=== PATIENT | female | born 1980 | race Caucasian/White ===

== ENCOUNTER 2018-12-17 07:00 | Outpatient (CLI) | payer MEDICAID, SELFPAY ==
[2018-12-17 13:16] LABS: HCT 41.4 % (36.0-46.0); HGB 13.8 g/dL (12.0-15.5); Mean Corp. HGB Concentration 33.3 g/dL (32.0-36.0); Mean Corpuscular Hemoglobin 30.5 pg (27.0-33.0); Mean Corpuscular Volume 91.4 fL (80-95); Mean Platelet Volume 11.7 fL (8.0-11.0); Platelet Count 220 x1000/uL (130-400); RBC 4.53 m/cumm (4.00-5.20); RBC Distribution Width 11.8 % (11.7-14.6); White Blood Cell Count 6.26 k/cumm (4.4-10.8)
[2018-12-17 13:43] LABS: Vitamin B12 297 pg/mL (193-986)
== END 2018-12-17 07:20 ==
PROVIDERS: PCP Family Medicine; Visit Provider Nurse Practitioner
DX: R53.83 Other fatigue (principal); Z13.1 Encounter for screening for diabetes mellitus
CPT/HCPCS: 36415; 85027; 82607; 83036

== ENCOUNTER 2019-01-05 00:29 | Outpatient (CLI) | payer MEDICAID, SELFPAY ==
--- NOTE | 2019-01-05 13:26 | DI.MAMMO_ITS ---
EXAM: MAMMO SCREENING CLINICAL HISTORY: screening Z12.39, baseline TECHNIQUE: Mammograms were interpreted according to the usual protocol including computer analysis w ith CAD system, tomosynthesis and C-view imaging. COMPARISON: No exams were available for comparison FINDINGS: The breast tissue is radiodense which lowers the sensitivity of the study. There is no dominant mass. There are no suspicious calcifications. A rounded density projected over the subareolar portion of the left breast, most likely represents a cyst, however further evaluation with a mediolateral compre ssion spot film and ultrasound is recommended. IMPRESSION: This is a category 0 examination with further assessment of the left breast with a mediolateral comp ression spot film and ultrasound recommended. Breast density, Category C BI-RADS Cat 0 - Assessment Incomplete: Need additional imaging evaluation. Breast Density - Category C - Heterogeneously dense.
== END 2019-01-05 00:49 ==
PROVIDERS: PCP Family Medicine; Visit Provider Nurse Practitioner
DX: Z12.31 Encounter for screening mammogram for malignant neoplasm of breast (principal); R92.8 Other abnormal and inconclusive findings on diagnostic imaging of breast
CPT/HCPCS: 77063; 77067

== ENCOUNTER 2019-01-11 01:51 | Outpatient (CLI) | payer MEDICAID, SELFPAY ==
--- NOTE | 2019-01-11 09:31 | DI.US_ITS ---
EXAM: Additional views of the left breast and a left breast ultrasound CLINICAL HISTORY: ROUNDED DENSITY PROJECTED OVER SUBAREOLAR PORTION LT BREAST MOST LIKELY TECHNIQUE: Mammograms were interpreted according to the usual protocol including computer analysis w [employer] CAD system, tomosynthesis and C-view imaging. Left breast ultrasound was also performed. COMPARISON: Available for comparison FINDINGS: The partially obscured but well-circumscribed nodule at the 3 o'clock position of the left is again v isualized on the additional views. A left breast ultrasound was performed. There is a 2.4 by 1.1 x 2.6 cm simple cyst at the 3 o'clock position of the left breast 3 cm from the nipple. This corresponds to the mammographic finding. No suspicious cystic or solid masses are seen sonographically. IMPRESSION: 1. 2.4 cm simple cyst at the 3 o'clock position of the left breast. This corresponds to the mammogra phic abnormality. 2. No suspicious masses or microcalcifications in the left breast. Yearly mammography is recommended . 3. BI-RADS Cat 2 - Benign Findings 4. Breast Density - Category C - Heterogeneously dense 5. The findings were discussed with the patient on the date of the examination.
--- NOTE | 2019-01-11 10:06 | DI.MAMMO_ITS ---
Additional views of the left breast and a left breast ultrasound CLINICAL HISTORY: ROUNDED DENSITY PROJECTED OVER SUBAREOLAR PORTION LT BREAST MOST LIKELY TECHNIQUE: Mammograms were interpreted according to the usual protocol including computer analysis w [employer] CAD system, tomosynthesis and C-view imaging. Left breast ultrasound was also performed. COMPARISON: Available for comparison FINDINGS: The partially obscured but well-circumscribed nodule at the 3 o'clock position of the left is again v isualized on the additional views. A left breast ultrasound was performed. There is a 2.4 by 1.1 x 2.6 cm simple cyst at the 3 o'clock p osition of the left breast 3 cm from the nipple. This corresponds to the mammographic finding. No renu picious cystic or solid masses are seen sonographically. IMPRESSION: 1. 2.4 cm simple cyst at the 3 o'clock position of the left breast. This corresponds to the mammograp hic abnormality. 2. No suspicious masses or microcalcifications in the left breast. Yearly mammography is recommended. 3. BI-RADS Cat 2 - Benign Findings 4. Breast Density - Category C - Heterogeneously dense 5. The findings were discussed with the patient on the date of the examination. BI-RADS Cat 2 - Benign Findings. Breast Density - Category C - Heterogeneously dense.
== END 2019-01-11 02:11 ==
PROVIDERS: PCP Family Medicine; Visit Provider Nurse Practitioner
DX: Z12.31 Encounter for screening mammogram for malignant neoplasm of breast (principal); R92.8 Other abnormal and inconclusive findings on diagnostic imaging of breast; N60.02 Solitary cyst of left breast
CPT/HCPCS: 76642; 77063; 77067

== ENCOUNTER 2020-01-24 14:49 | Outpatient (REF) | payer MEDICAID, SELFPAY ==
--- NOTE | 2020-01-24 13:30 | PAPFT_PTH ---
PATIENT: Tara Lugo LOC: [place] U#:[id number] AGE/SX: 39/F ROOM: RE01/24/[address]: MOON Hardin : 1980 BED: DIS: 01/24/2020 SPEC #: [id number] RECD: 01/24/20 17:59 STATUS: KIM REQ #: [id number] MILES: 01/24/20 13:[address]: Anali Johnson DEPT: [facility] Cytology RECD BY: Anu Pack ENTERED: 01/24/20 18:00 SP TYPE: PAPFT OTHR DR: Kavitha Robertson, PhD INTERVENTIONAL RADIOLOGY RN Tissues: 1 - CX/ENDOCX FOR PAP SMEARS Procedures: PAP THIN PREP/UVM Screening HPV DNA PROBE Comments: [id number] ([facility]#)
== END 2020-01-24 15:09 ==
LOC: LBN 14:49
PROVIDERS: PCP Nurse Practitioner; Visit Provider Nurse Practitioner Family
DX: Z12.4 Encounter for screening for malignant neoplasm of cervix (principal); Z11.51 Encounter for screening for human papillomavirus (HPV)
CPT/HCPCS: 88142; 87624

== ENCOUNTER 2020-01-26 00:53 | Outpatient (CLI) | payer MEDICAID, SELFPAY ==
--- NOTE | 2020-01-26 08:15 | DI.MAMMO_ITS ---
EXAM: MG MAMMO SCREENING CLINICAL HISTORY: SCREENING, Z12.39 TECHNIQUE: Bilateral full field digital CC and MLO mammographic images were obtained with 3D tomosyn thesis and utilizing computer aided detection (CAD). COMPARISON: Available for comparison. FINDINGS: Masses/Architectural Distortion: Several stable well-circumscribed nodules are seen in the breasts bi laterally. The largest is in the left breast and was previously shown to be a cyst. No suspicious m asses or areas of architectural distortion are seen. Microcalcifications: No suspicious pleomorphic-type are seen. Skin Thickening/Nipple Retraction: None. IMPRESSION: 1. No significant interval change with no specific features of malignancy noted. 2. Unless there is more urgent need, screening mammography is recommended, as per [place] [employer] guidelines. BI-RADS Category 2 - Benign Findings Breast Density - Category C - Heterogeneously dense The mammogram demonstrates the patient's breast tissue is dense. Dense breast tissue is very common a nd is not abnormal but dense breast tissue can make it harder to find cancer on a mammogram. Also, de nse breast tissue may increase their breast cancer risk. This information about the result of the [facility] mogram report was provided to the patient to raise their awareness. Use this report when you speak wi th the patient about their risks for breast cancer, which includes their family history. At that time , you may recommend for more screening tests (Ultrasound or MRI) as they might be useful based on the ir risk. A negative radiographic report should not delay biopsy if a dominant or clinically suspicious mass is present. Up to ten percent of cancers are not identified on mammography. A negative report may reinforce clinical impression. Adenosis and dense breasts may obscure an underlying neoplasm. False positive reports average 6 to 10%. Patient will receive a letter notifying them of these results.
== END 2020-01-26 01:13 ==
PROVIDERS: PCP Nurse Practitioner; Visit Provider Nurse Practitioner
DX: N63.20 Unspecified lump in the left breast, unspecified quadrant (principal); N63.21 Unspecified lump in the left breast, upper outer quadrant; Z12.31 Encounter for screening mammogram for malignant neoplasm of breast
CPT/HCPCS: 77063; 77067

== ENCOUNTER 2021-03-29 01:41 | Outpatient (CLI) | payer MEDICAID, SELFPAY ==
--- NOTE | 2021-03-29 07:15 | DI.MAMMO_ITS ---
Exam(s) MAMMO SCREENING EXAM: MAMMO SCREENING CLINICAL HISTORY: screening,Z12.39. TECHNIQUE: Bilateral full field digital CC and MLO mammographic images were obtained with 3D tomosyn thesis and utilizing computer aided detection (CAD). COMPARISON: Prior mammograms dating back to 2018, the most recent being January 2020. Prior ultrasound 01/11/2019 was also reviewed FINDINGS: Fibroglandular tissue pattern is again noted be moderately dense. There are no CAD designations in either breast. There are no new spiculated masses nor malignant appearing microcalcification groups. Previously present large nodule at 3 o'clock position left breast which were shown to be a cyst on pr ior ultrasound examination is no longer seen. No new significant radiograph findings in left breast. In the right breast a small conglomeration nodules lateral of center located 0.5 cm lateral to the ni pple, unchanged from January 2020 but slightly more prominent than in December 2018. This may repres ent a conglomeration of microcysts but recommend follow-up ultrasound. There are no malignant-appear ing microcalcification groups in this region nor elsewhere in either breast There is no significant architectural distortion nor skin thickening-retraction. IMPRESSION: 1. Previously present large cyst in the left breast is no longer seen. No new left breast findings. 2. Nodular density laterally in the right breast which is probably a conglomeration microcysts. Ultr asound is recommended. BI-RADS Category 0 - Assessment Incomplete: Need additional imaging evaluation Breast Density - Category C - Heterogeneously dense Breast density Category C or D implies that the patient has dense breast tissue. Dense breast tissue can make it harder to find cancer on a mammogram. Dense breast tissue is also associated with an incr eased risk of breast cancer. This information about the result of the mammogram report was provided to the patient to raise their awareness. Use this report when you speak with the patient about their risks for breast cancer, which includes their family history. At that time, you may recommend additional screening tests (Ultrasoun d or MRI) as these tests may add significant information. A negative radiographic report should not delay biopsy if a dominant or clinically suspicious mass is present. Up to ten percent of cancers are not identified on mammography. A negative report may reinforce clinical impression. Adenosis and dense breasts may obscure an underlying neoplasm. False positive reports average 6 to 10%. Patient will receive a letter notifying them of these results.
== END 2021-03-29 02:01 ==
PROVIDERS: PCP Nurse Practitioner; Visit Provider Nurse Practitioner
DX: Z12.31 Encounter for screening mammogram for malignant neoplasm of breast (principal); R92.8 Other abnormal and inconclusive findings on diagnostic imaging of breast
CPT/HCPCS: 77063; 77067

== ENCOUNTER 2021-04-03 01:01 | Outpatient (CLI) | payer MEDICAID, SELFPAY ==
--- NOTE | 2021-04-03 | DI.US_ITS ---
Exam(s) US BREAST RT COMPLETE EXAM: US BREAST RT COMPLETE CLINICAL HISTORY: F/U ABNL MAMMO, NODULAR DENSITY LATERALLY RT BREAST, ? MICROCYSTS TECHNIQUE: Ultrasound performed using standard protocol. COMPARISON: US US BREAST LT LIMITED from 01/11/2019 FINDINGS: Right breast ultrasound was obtained to evaluate a group of well-circumscribed nodules in the lateral portion of the right breast seen on CC view of recent mammogram. I would note that these nodules feliciano d been present on prior mammograms including January 2020 and were mammographically unchanged from t he prior studies. Breast ultrasound shows a group of longitudinally oriented cysts cysts with low-level internal echoes and no evidence of internal vascularity, the largest measuring roughly 1 cm in diameter, in the 7-8 o'clock position in the breast corresponding to the area of mammographic abnormality. The apparent c ysts show posterior acoustic enhancement. No solid mass is identified in this area. Scanning of the remainder of the breast shows small cysts in 12 o'clock and 6 o'clock position, these both measure about 7 millimeters in greatest diameter. No solid mass identified. IMPRESSION: Mammographic finding appears to correspond to longitudinally oriented group of cysts of the lower out er quadrant of the right breast as described above. No worrisome findings on ultrasound examination. I would suggest that a follow-up mammogram and ultrasound be obtained in 12 months. BI-RADS Cat 2 - Benign Findings DATA REPOSITORY:
== END 2021-04-03 01:21 ==
PROVIDERS: PCP Nurse Practitioner; Visit Provider Nurse Practitioner
DX: R92.8 Other abnormal and inconclusive findings on diagnostic imaging of breast (principal)
CPT/HCPCS: 76642

== ENCOUNTER 2022-07-21 00:54 | Outpatient (CLI) | payer MEDICAID, SELFPAY ==
--- NOTE | 2022-07-21 08:45 | DI.MAMMO_ITS ---
Exam(s) MAMMO SCREENING EXAM: MAMMO SCREENING CLINICAL HISTORY: screening,z12.39 TECHNIQUE: Mammograms were interpreted according to the usual protocol including computer analysis w [employer] CAD system, tomosynthesis and C-view imaging. COMPARISON: 2018 through 2021 FINDINGS: The breasts are composed of heterogeneously dense fibroglandular densities, Breast Density category C . No suspicious microcalcifications are seen. New 10mm nodule posterolateral left breast. Spot compression views and ultrasound recommended. Stable nodules lateral right breast. No skin thickening or abnormal axillary lymph nodes are seen. There has been no significant change from prior exams. IMPRESSION: BI-RADS Category 0 - Assessment Incomplete: Need additional imaging evaluation Yearly screening mammography is recommended. Breast Density Category C, heterogeneously Dense. The mammogram demonstrates the patient's breast tissue is dense. Dense breast tissue is very common a nd is not abnormal but dense breast tissue can make it harder to find cancer on a mammogram. Also, de nse breast tissue may increase breast cancer risk. This information about the result of the mammogram report was provided to the patient to raise their awareness. Use this report when you speak with the patient about their risks for breast cancer, which includes their family history. At that time, you may recommend additional screening tests (Ultrasound or MRI) as they might be useful based on their r isk. A negative radiographic report should not delay biopsy if a dominant or clinically suspicious mass is present. Up to ten percent of cancers are not identified on mammography. A negative report may reinforce clinical impression. Adenosis and dense breasts may obscure an underlying neoplasm. False positive reports average 6 to 10%.
== END 2022-07-21 01:14 ==
LOC: DI 00:55
PROVIDERS: PCP Family Medicine; Visit Provider Nurse Practitioner Family
DX: Z12.31 Encounter for screening mammogram for malignant neoplasm of breast (principal)
CPT/HCPCS: 77063; 77067

== ENCOUNTER 2022-07-29 01:00 | Outpatient (CLI) | payer MEDICAID, SELFPAY ==
--- NOTE | 2022-07-29 | DI.MAMMO_ITS ---
Exam(s) MG MAMMO SCREEN CALL BACK UNI US BREAST LT LIMITED EXAM: MG MAMMO SCREEN CALL BACK UNI and U/S breast LT limited CLINICAL HISTORY: NEW NODULE LEFT BREAST R92.8 ABNL MAMMO. TECHNIQUE: Craniocaudal and mediolateral oblique Full Field Digital Mammography views of the left br east with Computer Aided Diagnosis followed by Tomosynthesis and left breast ultrasound. COMPARISON: Comparison is made with prior examinations. FINDINGS: Mammography/Tomosynthesis: Masses/Architectural Distortion: There is again seen an ovoid density in the outer left breast best a ppreciated on the craniocaudad view. No areas of architectural distortion are seen. Microcalcifictions: No suspicious pleomorphic-type are seen. Skin Thickening/Nipple Retraction: None. Limited left breast US: Echotexture: Normal appearance of the glandular tissue. Shadowing: No suspicious foci. Cyst: At the 1 o'clock position 5 cm from the nipple, there is a 0.8 cm simple cyst. This would appe ar to correspond to the mammographic abnormality. At the 2 o'clock position of the left breast 1 cm from the nipple, there is a dilated duct present. At the 3 o'clock position 1 cm from the nipple, th ere is a well-circumscribed complex likely hemorrhagic cyst measuring 1 x 0.8 x 1 cm. Solid lesions: None seen. Ductal dilation: None. IMPRESSION: 1. No definite evidence of malignancy is noted. 2. A six-month follow-up left mammogram is requested for re-evaluation. 3. The findings were discussed with the patient on the date of the examination. BI-RADS Category 3 - 6 month - Probably Benign Finding: Recommend follow-up imaging in 6 months Breast Density - Category C - Heterogeneously dense Breast density Category C or D implies that the patient has dense breast tissue. Dense breast tissue can make it harder to find cancer on a mammogram. Dense breast tissue is also associated with an incr eased risk of breast cancer. This information about the result of the mammogram report was provided to the patient to raise their awareness. Use this report when you speak with the patient about their risks for breast cancer, which includes their family history. At that time, you may recommend additional screening tests (Ultrasoun d or MRI) as these tests may add significant information. A negative radiographic report should not delay biopsy if a dominant or clinically suspicious mass is present. Up to ten percent of cancers are not identified on mammography. A negative report may reinforce clinical impression. Adenosis and dense breasts may obscure an underlying neoplasm. False positive reports average 6 to 10%. Patient will receive a letter notifying them of these results.
== END 2022-07-29 01:20 ==
LOC: DI 01:00
PROVIDERS: PCP Family Medicine; Visit Provider Nurse Practitioner Family
DX: R92.8 Other abnormal and inconclusive findings on diagnostic imaging of breast (principal); Z12.31 Encounter for screening mammogram for malignant neoplasm of breast
CPT/HCPCS: 76642; 77063; 77067

== ENCOUNTER 2022-10-31 16:03 | Emergency (ER) | payer MEDICAID, SELFPAY ==
--- NOTE | 2022-10-31 16:10 | W.ED.GENAD ---
Discharge Plan Disposition Patient Disposition: Home Discharge Details Clinical Impression: Laceration of left hand, Immunization, tetanus-diphtheria Primary Care Provider: Carlos Garcia ED Provider: Kevin Ahn Home Meds and New Rx's Prescriptions: No Action No Known Home Meds Discharge Instructions Instructions: Laceration (ED) Additional Instructions: You were seen in the emergency department for your laceration. Your x-ray showed no sign of any foreign bodies. Your tetanus was updated. Please return to the emergency department if you develop streaking signs of infection any fevers or chills or if you have any other concerns. You had 3 sutures that were placed. These need to come out in 7 to 10 days. Please return to the emergency department or follow-up with your primary care provider. Your x-ray showed no sign of any foreign bodies. For your pain please take medications as follows: 1. Take acetaminophen (Tylenol), 1,000 mg (two 500 mg tabs) every 6 hours 2. Take ibuprofen (Advil), 400 mg every 6 hours. Discharge Data Discharge Date/Time-TO BE ENTERED AT DEPARTURE: 10/31/22 17:19 Medical Decision Making This is an overall very well-appearing jkycx-crac-hokpmmzm 42-year-old female with left hand laceration concerning for the possibility of retained foreign body given glass causing laceration. Patient does have some decreased sensation along the ulnar aspect of her left thumb which is likely transient neuropraxia. We did discuss that it is certainly possible that she has injured a sensory nerve in her thumb and that she may or may not fully regain sensation to her distal left thumb. She does have intact motor function and based on the relatively superficial nature of her laceration and her reassuring exam, I am not suspicious for any tendon injuries. Will obtain plain films to assess for foreign body and irrigate extensively and reassess to determine need for primary closure versus allowing the wound to heal by secondary intention. Patient declined oral analgesia. Her tetanus has not been updated since 2007 so I updated her tetanus status. HPI General Date/Time Provider Initiated Documentation: 10/31/22 16:10. HPI Narrative: This is a pxlit-dwpe-dccvdecy 42-year-old female who cut her left hand on a glass jar which broke at approximately 3:30 PM this afternoon. She says that she has had decreased feeling in the tip of her left thumb. She reportedly rinsed her laceration extensively with soap and water prior to arrival. She denies any other injuries. She is not anticoagulated and she takes no medications. She reports that her tetanus was last updated in 2007. Related Data Home Medications Medication Instructions Recorded Confirmed Unknown [No Known Home Meds] 12/17/18 10/31/22 Allergies Allergy/AdvReac Type Severity Reaction Status Date / Time No Known Allergies Allergy Verified 10/31/22 16:14 [facility] All Active Problems Laceration of left hand (Acute) Immunization, tetanus-diphtheria (Acute) Migraine with aura (Acute 10/05/14) Vegan diet (Acute) Medical History Migraine with aura Family History Mother No problems noted. Father No problems noted. Sister No problems noted. Brother No problems noted. Son No problems noted. Daughter No problems noted. Maternal Grandmother Heart disease Paternal Grandfather , age 89 Heart disease Maternal Grandmother Heart disease Stroke Paternal Grandmother , age 88 Heart disease Social History (Updated 12/26/21 @ 16:16 by Eloisa Murray) Smoking/Tobacco Use Status: Former Tobacco Use tobacco type: cigarettes Quit Date: 03/16/05 Tobacco: How many years used: 9 Second Hand Exposure: Yes (as child) Smoking risk assessment performed?: Yes Alcohol Intake: current Alcohol Intake frequency: holidays/special occasions only Alcohol type: beer Drug use: Never Substance use type: does not use Caregiver/Support person: No Household members: spouse Housing: house Communication Needs: None Do you need help understanding health information?: Never Pets and animals: Yes Pets and animals: dog(s) Sexually active: Yes Do you think of yourself as: straight/heterosexual Current gender identity: female What is your relationship status?: How often do you talk on the phone with friends or family?: three or more times per week How often do you get together with friends or relatives?: three or more times per week Do you belong to any clubs or organized social groups?: no Panel score (0-1 are the most socially isolated patients): 2 What type of physical activity do you participate in: weight lifting and running Duration: 45-60 minutes/day Frequency: 5-6 times per week Special patrice needs: No Seatbelt use: always Helmet use: Yes Helmet use: always Drive intox or ride w/intox dumpster driver: No Exam Narrative Exam Narrative: General: Well-appearing in no acute distress speaking in complete sentences. Head: Normocephalic, atraumatic. Eye: Pupils equal, round reactive to light. Extraocular eye movements intact. No conjunctival injection. No scleral icterus. Ear, nose, mouth, throat: Grossly normal inspection. Normal voice, handling secretions normally. Neck: Trachea midline. Cardiovascular: Well-perfused distal extremities. Respiratory: Nonlabored respiration. Gastrointestinal: Nondistended abdomen. Musculoskeletal: On the left hand in the dorsal webspace between the thumb and the index finger at the base of the thumb there is an approximately 1.5 cm superficial laceration that is hemostatic. Patient is full range of motion in her left thumb. Cap refill less than 2 seconds in the left thumb. Patient does have slightly decreased sensation on the ulnar aspect of the distal left thumb. Otherwise sensation motor function intact in the left hand across the radian, medial, and ulnar nerve distributions. 2+ left radial pulse. Skin: Normal for age and race, grossly normal temperature and turgor. No acute rash. Neurologic: Alert and appropriate, no apparent acute deficits. Psychiatric: Mood and manner are appropriate. Grooming and personal hygiene are appropriate. Procedures Laceration Laceration 1: Site: hand Side (If applicable): left Size (cm): 1.5 Description: flap Depth: simple, single layer Local Anesthetic: Lidocaine 2% Amount of anesthesia used (mL): 8 Pre-repair: wound explored and irrigated extensively Size (cm): 5-0 (5-0 Ethilon) Number of sutures: 3
[2022-10-31 16:11] VITALS: BP 114/71; PULSE 74; RESP 16; TEMP 36.8; O2SAT 99
--- NOTE | 2022-10-31 16:15 | DI.RAD_ITS ---
Exam(s) XR HAND LT COMPLETE EXAM: XR HAND LT COMPLETE CLINICAL HISTORY: Glass laceration webspace between thumb and index. TECHNIQUE: 2D digital imaging was performed. Three views. COMPARISON: No exams were available for comparison FINDINGS: BONES: No acute fracture is present. No bony destructive lesion is seen. JOINTS: No dislocation present. SOFT TISSUE: Normal. No foreign body. IMPRESSION: Unremarkable radiographs of the left hand. DATA REPOSITORY: RADIATION DOSE DELIVERED:
[2022-10-31] MEDS: Lidocaine 2% Pres-Free 5 ML VIAL IJ (16:50)
== END 2022-10-31 17:19 | disposition home or self-care (01) ==
PROVIDERS: Emergency Provider Emergency Medicine; PCP Family Medicine
DX: S61.412A Laceration without foreign body of left hand, initial encounter (principal); W25.XXXA Contact with sharp glass, initial encounter
CPT/HCPCS: 12001; 90471; 99284; 73130; 99283

== ENCOUNTER 2022-11-07 12:41 | Emergency (ER) | payer MEDICAID, SELFPAY ==
[2022-11-07 13:22] VITALS: BP 114/70; PULSE 72; RESP 18; TEMP 36.8; O2SAT 97
--- NOTE | 2022-11-07 13:38 | ED.GENADUL_ITS ---
Discharge Plan Disposition Patient Disposition: Home Discharge Details Clinical Impression: Encounter for removal of sutures Primary Care Provider: Carlos Garcia ED Provider: Behzad Gray Home Meds and New Rx's Prescriptions: No Action No Known Home Meds Discharge Instructions Referrals: Carlos Garcia MD [Primary Care Provider] - (As needed for reassessment) Discharge Data Discharge Date/Time-TO BE ENTERED AT DEPARTURE: 11/07/22 13:56 Medical Decision Making Patient presenting the emergency department for chief complaint of suture removal. Patient reports wound has been healing well but still has some loss of sensation to the ulnar aspect of her thumb. Exam does show sensation loss to ulnar aspect. Discussed with patient referral to orthopedist or hand surgeon. After discussion of this with patient patient stated that she would hold off on referral to specialist to see how much resolution could happen on its own. 3 sutures were removed no signs of dehiscence or infection. After discussion of diagnosis and plan of care patient has no further needs, questions, or concerns and states clear understanding to return to the emergency department for any worsening symptoms. This documentation was generated using [employer] system, please disregard any oddities of phrase or misspellings. HPI General Mode of arrival: ambulatory . Date/Time Provider Initiated Documentation: 11/07/22 12:51 . Limitations to Documentation: no limitations . Information obtained by: patient, RN notes reviewed and old records reviewed . History of Present Illness 42 year old F presents to the emergency department with the chief complaint of Suture removal, Patient notes no other symptoms.. Related Data Home Medications Medication Instructions Recorded Confirmed Unknown [No Known Home Meds] 12/17/18 11/07/22 Allergies Allergy/AdvReac Type Severity Reaction Status Date / Time No Known Allergies Allergy Verified 10/31/22 16:14 General Stated Complaint: SutureRem MARCIO: 5 Review of Systems Constitutional Constitutional: Denies chills and Denies fever(s) Musculoskeletal Musculoskeletal: Denies arthralgias, Reports numbness and Reports tingling Integumentary/Breasts Skin/Breast: Denies rash and Denies skin swelling Neurologic Neurologic: Reports numbness and Reports tingling PFSH All Active Problems Laceration of left hand (Acute) Immunization, tetanus-diphtheria (Acute) Encounter for removal of sutures (Acute) Migraine with aura (Acute 10/05/14) Vegan diet (Acute) Medical History Migraine with aura Family History Mother No problems noted. Father No problems noted. Sister No problems noted. Brother No problems noted. Son No problems noted. Daughter No problems noted. Maternal Grandmother Heart disease Paternal Grandfather , age 89 Heart disease Maternal Grandmother Heart disease Stroke Paternal Grandmother , age 88 Heart disease Social History Smoking/Tobacco Use Status: Former Tobacco Use tobacco type: cigarettes Quit Date: 03/16/05 Tobacco: How many years used: 9 Second Hand Exposure: Yes (as child) Smoking risk assessment performed?: Yes Alcohol Intake: current Alcohol Intake frequency: holidays/special occasions only Alcohol type: beer Drug use: Never Substance use type: does not use Caregiver/Support person: No Household members: spouse Housing: house Communication Needs: None Do you need help understanding health information?: Never Pets and animals: Yes Pets and animals: dog(s) Sexually active: Yes Do you think of yourself as: straight/heterosexual Current gender identity: female What is your relationship status?: How often do you talk on the phone with friends or family?: three or more times per week How often do you get together with friends or relatives?: three or more times per week Do you belong to any clubs or organized social groups?: no Panel score (0-1 are the most socially isolated patients): 2 What type of physical activity do you participate in: weight lifting and running Duration: 45-60 minutes/day Frequency: 5-6 times per week Special patrice needs: No Seatbelt use: always Helmet use: Yes Helmet use: always Drive intox or ride w/intox xm1 tank driver: No Do you feel safe at home: Yes Do you feel safe in your relationship?: Yes Exam Const General: cooperative, comfortable and no acute distress Orientation: alert, awake and oriented x3 Skin Rashes: no rashes Trauma: laceration (healing well laceration without erythema, purulence, or dehiscence.) Extrem General: normal exam except as noted Left upper extremity: hand Details: neurosensory exam abnormal Details: digital nerve sensory function abnormal Location: in the thumb Course Vital Signs Vital signs: Vital Signs Temperature 36.8 C 11/07/22 13:22 Pulse 72 11/07/22 13:22 Respiratory Rate 18 11/07/22 13:22 Blood Pressure 114/70 11/07/22 13:22 Pulse Oximetry 97 11/07/22 13:22 Temperature 36.8 C 11/07/22 13:22 Temperature Source Temporal Artery Scan 11/07/22 13:22 Pulse 72 11/07/22 13:22 Respiratory Rate 18 11/07/22 13:22 Respiratory Effort Normal, Non-Labored, Incrsd Work of Breathing 11/07/22 13:30 Blood Pressure 114/70 11/07/22 13:22 Blood Pressure Position Sitting 11/07/22 13:22 Pulse Oximetry 97 11/07/22 13:22 Oxygen Delivery Method Room Air 11/07/22 13:22 Oxygen Flow Rate 0 11/07/22 13:22 Pain Level 0 11/07/22 13:22 PAWSS Have you Been Recently Intoxicated or Drunk Within the Last 30 days?: No Have you Ever Experienced Previous Episodes of Alcohol Withdrawal?: No Have you ever Experienced Withdrawal Seizures?: No Have you ever Experienced Delirium Tremens(DT)s?: No Have you ever undergone Alcohol Rehabilitation Treatment (i.e, inpt ot outpatient treatment programs)?: No Have you ever Experienced Blackouts?: No Have you ever Combined Alcohol with other Downers within the last 90 days?: No Have you ever Combined Alcohol with any other Substance of Abuse during the last 90 days?: No Positive Blood Alcohol level on Presentation? [PCS.BAL]: No Evidence of Increased Autonomic Activity (i.e. HR>120, tremor, sweating, agitation, nausea)?: No Result: 0
--- NOTE | 2022-11-09 08:39 | NUR.NOTE ---
Referral made per Alf Gray to [facility] for next avail for loss of sensation/sensory nerve damage due to laceration of left hand. Put the referral in critical care nurse practitioner's box for follow up assistance. Nursing Note:
== END 2022-11-07 13:56 | disposition home or self-care (01) ==
PROVIDERS: Emergency Provider Nurse Practitioner Family; PCP Family Medicine
DX: Z48.02 Encounter for removal of sutures (principal)

== ENCOUNTER → 2023-02-04 01:34 | Outpatient (CLI) | payer MEDICAID, SELFPAY ==
--- NOTE | 2023-02-04 08:00 | DI.US_ITS ---
Exam(s) MG MAMMO DIAGNOSTIC UNI US BREAST LT LIMITED EXAM: MG MAMMO DIAGNOSTIC UNI CLINICAL HISTORY: 3-6 mo f/u,R92.8,Z09. COMPARISON: MG MG MAMMO SCREENING from 01/26/2020 MG MG MAMMO SCREENING from 03/29/2021 US US BREAST RT COMPLETE from 04/03/2021 MG MG MAMMO SCREENING from 07/21/2022 MG MG MAMMO SCREEN CALL BACK UNI from 07/29/2022 US US BREAST LT LIMITED from 07/29/2022 US US BREAST LT LIMITED from 02/04/2023 TECHNIQUE: Craniocaudal and mediolateral oblique Full Field Digital Mammography views of the left br east with Computer Aided Diagnosis followed by Tomosynthesis and left breast ultrasound. FINDINGS: Mammography/Tomosynthesis: The breast is composed of heterogeneously dense fibroglandular tissue which decreases the sensitivity of the mammogram. Masses/Architectural Distortion: None seen. Previously noted nodule seen laterally in left breast i s no longer discretely visible. No new abnormalities visible. Microcalcifications: No suspicious pleomorphic-type are seen. Skin Thickening/Nipple Retraction: None. Left breast US: Echotexture: Normal appearance of the glandular tissue. Shadowing: No suspicious foci. Cyst: 7 millimeter maximal dimension cyst 12 o'clock position 1 cm from the nipple. Additional 7 mil limeter cyst 1 o'clock position 5 cm from the nipple. Two adjacent cysts in the 2 o'clock position 1 cm from the nipple measuring 7 and 1.2 cm. Eight millimeter cyst 3 o'clock position 1 cm from the n ipple. Solid lesions: None seen. Ductal dilation: None. IMPRESSION: 1. No evidence of malignancy is noted. Multiple simple cysts. 2. Recommend bilateral screening mammography in 6 months. BI-RADS Category 2 - Benign Findings Breast Density - Category C - Heterogeneously dense Breast density category C or D implies that the patient has dense breast tissue. Dense breast tissue is very common and is not abnormal but dense breast tissue can make it harder to find cancer on a ma mmogram. Also, dense breast tissue may increase their breast cancer risk. This information about the result of the mammogram report was provided to the patient to raise their awareness. Use this report when you speak with the patient about their risks for breast cancer, which includes their family hist ory. At that time, you may recommend for more screening tests (Ultrasound or MRI) as they might be us eful based on their risk. A negative radiographic report should not delay biopsy if a dominant or clinically suspicious mass is present. Up to ten percent of cancers are not identified on mammography. A negative report may reinforce clinical impression. Adenosis and dense breasts may obscure an underlying neoplasm. False positive reports average 6 to 10%. Patient will receive a letter notifying them of these results.
== END ==
PROVIDERS: PCP Nurse Practitioner Family; Visit Provider Nurse Practitioner Family
DX: R92.8 Other abnormal and inconclusive findings on diagnostic imaging of breast (principal); Z09 Encounter for follow-up examination after completed treatment for conditions other than malignant neoplasm
CPT/HCPCS: 76642; 77061; 77065; G0279

== ENCOUNTER 2023-08-11 15:49 | Outpatient (REF) | payer MEDICAID, SELFPAY ==
--- NOTE | 2023-08-11 15:10 | PAPFT_PTH ---
PATIENT: Tara Lugo LOC: [facility] U#:[id number] AGE/SX: 42/F ROOM: RE08/11/[address]: Gracie Gautam NP : 1980 BED: DIS: 08/11/2023 SPEC #: [id number] RECD: 08/11/23 17:28 STATUS: KIM REYesi #: [id number] MILES: 08/11/23 15:[address]: Lotus SABA,Gracie DEPT: [facility] Cytology RECD BY: Anu Pack ENTERED: 08/11/23 17:33 SP TYPE: PAPFT OTHR DR: Starla Barney, MOON Tissues: 1 - CX/ENDOCX FOR PAP SMEARS Procedures: PAP THIN PREP/UVM Screening HPV DNA PROBE Comments: [id number]
== END 2023-08-11 15:50 | disposition home or self-care (01) ==
LOC: LBN 15:49
PROVIDERS: PCP Nurse Practitioner Family; Visit Provider Nurse Practitioner Women's Health
DX: Z12.4 Encounter for screening for malignant neoplasm of cervix (principal); Z01.419 Encounter for gynecological examination (general) (routine) without abnormal findings; S31.41XA Laceration without foreign body of vagina and vulva, initial encounter; Z12.31 Encounter for screening mammogram for malignant neoplasm of breast
CPT/HCPCS: 88142; 87624

== ENCOUNTER → 2023-08-18 00:56 | Outpatient (CLI) | payer MEDICAID, SELFPAY ==
--- NOTE | 2023-08-18 15:45 | DI.MAMMO_ITS ---
Exam(s) MAMMO SCREENING EXAM: MAMMO SCREENING CLINICAL HISTORY: screening. TECHNIQUE: Bilateral full field digital CC and MLO mammographic images were obtained with 3D tomosyn thesis and utilizing computer aided detection (CAD). COMPARISON: Prior mammograms were reviewed. Prior left breast ultrasound of 02/04/2023 was also reviewed. FINDINGS: There has been no significant change in the appearance and distribution of the fibroglandular tissue. There are no CAD designations. There are no new spiculated masses nor new malignant appearing microcalcification groups. Asymmetric density located anterolaterally in the right breast is unchanged from prior mammograms. There is no significant architectural distortion nor skin thickening-retraction. IMPRESSION: No radiographic evidence of malignancy. Stable benign-appearing findings. BI-RADS Category 2 - Benign Findings Breast Density - Category C - Heterogeneously dense Breast density Category C or D implies that the patient has dense breast tissue. Dense breast tissue can make it harder to find cancer on a mammogram. Dense breast tissue is also associated with an incr eased risk of breast cancer. This information about the result of the mammogram report was provided to the patient to raise their awareness. Use this report when you speak with the patient about their risks for breast cancer, which includes their family history. At that time, you may recommend additional screening tests (Ultrasoun d or MRI) as these tests may add significant information. A negative radiographic report should not delay biopsy if a dominant or clinically suspicious mass is present. Up to ten percent of cancers are not identified on mammography. A negative report may reinforce clinical impression. Adenosis and dense breasts may obscure an underlying neoplasm. False positive reports average 6 to 10%. Patient will receive a letter notifying them of these results.
== END ==
PROVIDERS: PCP Nurse Practitioner Family; Visit Provider Nurse Practitioner Women's Health
DX: Z12.31 Encounter for screening mammogram for malignant neoplasm of breast (principal)
CPT/HCPCS: 77063; 77067

== ENCOUNTER 2023-08-21 05:18 | Outpatient (CLI) | payer MEDICAID, SELFPAY ==
[2023-08-21 10:11] LABS: Anion Gap 9.1 mmol/L (3-11); BUN 7 mg/dL (7-18); CO2 25.9 mmol/L (21.0-32.0); CREATININE 0.9 mg/dL (0.55-1.02); Calculated LDL 73 mg/dL (<100); Chloride 103 mmol/L (98-107); Cholesterol 171 mg/dL (<200); Estimated GFR 80.84 (mL/min/1.73m2); Glucose 98 mg/dL (74-106); HDL Cholesterol 85 mg/dL (40-60); Potassium 3.8 mmol/L (3.5-5.1); Sodium 138 mmol/L (136-145); Triglyceride 65 mg/dL (<150)
== END 2023-08-21 05:19 | disposition home or self-care (01) ==
PROVIDERS: PCP Nurse Practitioner Family; Visit Provider Nurse Practitioner Family
DX: Z00.00 Encounter for general adult medical examination without abnormal findings (principal); Z11.59 Encounter for screening for other viral diseases
CPT/HCPCS: 36415; 80048; 80061

== ENCOUNTER 2023-09-03 00:58 | Outpatient (CLI) | payer MEDICAID, SELFPAY ==
[2023-09-03 10:51] LABS: Vitamin B12 755 pg/mL (193-986); Vitamin D 25 Total 54.6 ng/mL (30-100)
[2023-09-04 09:02] LABS: HIV-1/2 Ag & Ab Screen Negative (Negative)
[2023-09-04 09:33] LABS: HBs Antibody, Quant 163.3 mIU/mL (See Note); Hep B Surface Ab Positive (See Note); Hepatitis B Core Antibody Negative (Negative); Hepatitis B Surface Antigen Negative (Negative)
[2023-09-04 09:37] LABS: Hepatitis C Ab w Rflx HCV PCR Negative (Negative)
== END 2023-09-03 00:59 | disposition home or self-care (01) ==
LOC: LBO 00:58
PROVIDERS: PCP Nurse Practitioner Family; Visit Provider Nurse Practitioner Family
DX: Z11.4 Encounter for screening for human immunodeficiency virus [HIV] (principal); Z78.9 Other specified health status; Z11.59 Encounter for screening for other viral diseases
CPT/HCPCS: 36415; 82306; 86704; 86706; 86803; 87340; 87389; 82607